=== PATIENT | male | born 1985 ===

== ENCOUNTER 2025-02-23 08:54 | Outpatient (CLI) | payer OTHER, SELFPAY ==
--- NOTE | 2025-02-23 09:00 | CRLHL7_ITS ---
For Patients: As a result of the Century Cures Act, medical imaging exams and procedure reports are released immediately into your electronic medical record. You may view this report before your referring provider. If you have questions, please contact your health care provider. INDICATION: Chronic sinusitis. Left ear pain. TECHNIQUE: High-resolution CT images of the paranasal sinuses without contrast. Multiplanar reconstructions. FINDINGS: Frontal: There is localized mucosal thickening within a midline frontal air cell and the left inferior frontal recess. The frontal air cells are generally hypoplastic. Ethmoid: Postop changes with partial bilateral ethmoidectomies. There is mucosal thickening in the remaining ethmoid air cells bilaterally. Sphenoid: The 2-3 mm the dependent mucosal thickening in the sphenoid air cells with mucosal narrowing of the sphenoid ethmoidal recesses. Maxillary: The bilateral maxillary antrostomies and uncinate ectomy is has been performed. There is of right greater than left mucosal thickening at the base of the maxillary antrum bilaterally but without air-fluid levels. Nasal fossa: There is subtle S shaped curvature of the bony nasal septum. The posterior nasal fossa and the nasopharynx are unremarkable. The mastoid air cells are clear bilaterally. IMPRESSION: 1. Bilateral maxillary antrostomies, uncinatectomies and partial ethmoidectomies. 2. Mucosal thickening at the base of the right greater the left maxillary antrum, within few bilateral ethmoid air cells and in the hypoplastic inferior left frontal air cell. 3. Trace of dependent fluid in the sphenoid sinus. 4. Subtle S shaped nasal septal curve. Please note that all CT scans at this facility use dose modulation, iterative reconstruction, and/or weight-based dosing when appropriate to reduce radiation dose to as low as reasonably achievable. Dictated by Lars Abmriz MD @ 02/23/2025 6:16:56 PM (Electronically Signed)
== END 2025-02-23 08:55 | disposition home or self-care (01) ==
LOC: CT 08:55
PROVIDERS: PCP Family Medicine; Visit Provider Otolaryngology
DX: J32.9 Chronic sinusitis, unspecified (principal); J32.0 Chronic maxillary sinusitis; J34.2 Deviated nasal septum; H92.02 Otalgia, left ear
CPT/HCPCS: 70486